=== PATIENT | male | born 1960 | race Caucasian/White ===

== ENCOUNTER 2019-01-04 14:18 | Emergency (ER) | payer BC ==
[2019-01-04] MEDS ORDERED: Bacitracin Oint 1 GM U/D Packet TOP ONE (14:37)
[2019-01-04] MEDS ORDERED: Diphtheria,Pertussis(Acell),Tetanus Vaccine 0.5 ML SDV IM ONE (14:37)
--- NOTE | 2019-01-04 14:43 | EDM.PDOC ---
ED HPI GENERAL MEDICAL PROBLEM - General Chief Complaint: Laceration Stated Complaint: LACERATION ON LEFT INDEX FINGER Time Seen by Provider: 01/04/19 14:35 Source of Information: Reports: Patient History Limitations: Reports: No Limitations - History of Present Illness INITIAL COMMENTS - FREE TEXT/NARRATIVE: 58 yo male here after lacerating the dorsum of his L index finger over the PIP jt. His last tetanus was 5 yrs ago. Is [place]. Injury the result of slipping with a knife. 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) - Related Data Allergies Allergy/AdvReac Type Severity Reaction Status Date / Time No Known Allergies Allergy Verified 01/04/19 14:36 Home Meds: Home Meds Aspirin [[place] Aspirin] 1 tab PO DAILY 01/04/19 [History] Rosuvastatin Calcium 1 tab PO BEDTIME 01/04/19 [History] ED ROS GENERAL - Review of Systems Review Of Systems: See Below Constitutional: Reports: No Symptoms Musculoskeletal: Reports: No Symptoms Skin: Reports: Wound Neurological: Reports: No Symptoms ED EXAM, SKIN/RASH Exam: See Below Exam Limited By: No Limitations General Appearance: Alert, WD/WN, No Apparent Distress Extremities: Other (wound L index finger, normal extension strength.). No: Non- Tender, Pedal Edema, Joint Swelling, Increased Warmth Neurological: Alert, Oriented, CN II-XII Intact, Normal Cognition, No Motor/ Sensory Deficits Psychiatric: Normal Affect, Normal Mood Skin: Warm, Dry, Normal Color, No Rash, Wound/Incision (linear laceration of L index finger dorsally over the PIP jt. ) Location, Skin: Upper Extremity, Left Characteristics: Linear, Other (no active bleeding) Associated features: Tenderness. No: Warmth, Swelling, Induration, Lymphangitis , Inflammation ED SKIN PROCEDURES - Laceration/Wound Repair Left Dorsal Digit - 2nd (Index) Appearance: Subcutaneous, Linear, Clean Distal NVT: Neuro & Vascular Intact, No Tendon Injury Anesthetic Type: Local Local Anesthesia - Lidocaine (Xylocaine): 1% Plain Local Anesthetic Volume: 2cc Skin Prep: Saline Saline Irrigation (cc's): 20 Closed with: Sutures Lac/Wound length In cm: 1.7 Suture Size: 5-0 # of Sutures: 3 Suture Type: Nylon, Interrupted, Simple Drain Placement: No Sterile Dressing Applied: Nurse Tetanus Status Addressed: Yes Complications: No Course - Vital Signs Last Recorded V/S: Last Vital Signs Temp 37.4 C 01/04/19 14:35 Pulse 97 01/04/19 14:35 Resp 13 01/04/19 14:35 BP 139/73 01/04/19 14:35 Pulse Ox 98 01/04/19 14:35 - Orders/Labs/Meds Orders: Active Orders 24 hr Category Date Time Status Vaccines to be Administered [RC] PER UNIT ROUTINE Care 01/04/19 14:37 Ordered Meds: Medications Discontinued Medications Generic Name Dose Route Start Last Admin Trade Name Freq PRN Reason Stop Dose Admin Bacitracin 1 dose 01/04/19 14:37 Bacitracin Oint 1 Gm TOP 01/04/19 14:38 ONETIME ONE Diphtheria/Tetanus/Acell Pertussis 0.5 ml 01/04/19 14:37 Adacel IM 01/04/19 14:38 .ONCE ONE Lidocaine HCl 5 ml 01/04/19 14:37 Xylocaine-Mpf 1% INJECT 01/04/19 14:38 ONETIME ONE Departure - Departure Time of Disposition: 14:55 Disposition: Home, Self-Care 01 Condition: Good Clinical Impression: Finger laceration Qualifiers: Encounter type: initial encounter Finger: index finger Damage to nail status: without damage Foreign body presence: without foreign body Laterality: left Qualified Code(s): S61.211A - Laceration without foreign body of left index finger without damage to nail, initial encounter - Discharge Information *PRESCRIPTION DRUG MONITORING PROGRAM REVIEWED*: No *COPY OF PRESCRIPTION DRUG MONITORING REPORT IN PATIENT TRAVIS: No Instructions: Sutured Wound Care, [id number] Referrals: PCP,None [Primary Care Provider] - Additional Instructions: Clean wound twice daily with soap and water. Dry. Apply antibiotic ointment and a new dressing. Keep wound clean for 3 days. Recheck for signs of infection. Stitches out in about 10 days. Take acetaminophen as needed for pain relief. - My Orders Last 24 Hours: My Active Orders 01/04/19 14:37 Vaccines to be Administered [RC] PER UNIT ROUTINE - Assessment/Plan Last 24 Hours: My Active Orders 01/04/19 14:37 Vaccines to be Administered [RC] PER UNIT ROUTINE
== END 2019-01-04 15:11 | disposition home or self-care (01) ==
LOC: JP.ED 14:18
DX: S61.211A Laceration without foreign body of left index finger without damage to nail, initial encounter (principal); Z23 Encounter for immunization; Z79.82 Long term (current) use of aspirin; W01.0XXA Fall on same level from slipping, tripping and stumbling without subsequent striking against object, initial encounter; W26.0XXA Contact with knife, initial encounter
CPT/HCPCS: 12001; 90471; 90715; 99282; J2001

== ENCOUNTER 2019-09-21 10:21 | Emergency (ER) | payer BC, OTHER ==
--- NOTE | 2019-09-21 11:15 | EDM.PDOC ---
ED HPI GENERAL MEDICAL PROBLEM - General Chief Complaint: Lower Extremity Injury/Pain Stated Complaint: PULLED MUSCLE IN LEFT THIGH BACK Time Seen by Provider: 09/21/19 10:37 Source of Information: Reports: Patient History Limitations: Reports: No Limitations - History of Present Illness INITIAL COMMENTS - FREE TEXT/NARRATIVE: 58-year-old male with no significant health problems other than coronary artery disease. He takes an aspirin a day. He was attempting to slalom ski yesterday and injured his right leg. He had immediate pain. Today he has pain and swelling. He has increased pain with weightbearing, extending and flexing the knee as well extending the hip. He denies any numbness or weakness. He denies any discoloration of the right foot. He is using Tylenol and ibuprofen and it helps. Left Posterior Leg Pain Score (Numeric/FACES): 6 - Related Data Allergies Allergy/AdvReac Type Severity Reaction Status Date / Time No Known Allergies Allergy Verified 01/04/19 14:36 Home Meds: Home Meds Aspirin [[place] Aspirin] 1 tab PO DAILY 01/04/19 [History] Rosuvastatin Calcium 1 tab PO BEDTIME 01/04/19 [History] Past Medical History HEENT History: Reports: Impaired Vision Cardiovascular History: Reports: CAD, High Cholesterol, [place] - Past Surgical History Head Surgeries/Procedures: Reports: None HEENT Surgical History: Reports: None Cardiovascular Surgical History: Reports: Carotid Stents Social & Family History - Tobacco Use Smoking Status *Q: Never Smoker - Caffeine Use Caffeine Use: Reports: Coffee, Soda - Recreational Drug Use Recreational Drug Use: No Review of Systems - Review of Systems Review Of Systems: See Below Constitutional: Reports: No Symptoms Musculoskeletal: Reports: Other (Right leg pain) Neurological: Reports: Other (No numbness or weakness of the right foot.) ED EXAM, GENERAL - Physical Exam Exam: See Below Exam Limited By: No Limitations General Appearance: Alert, WD/WN, Mild Distress Cardiovascular: Other (Good dorsal pedal pulses. Normal sensation of the right foot.) Extremities: Other (He has pain and swelling posterior distal thigh. He is unable to fully flex or extend the right knee. He has some tenderness of the proximal posterior calf however he has good motion of the foot with pression of the calf. Has good dorsiflexion of the right foot as well as extensor pollicis longus. Patient is normal.) Course - Vital Signs Text/Narrative:: This patient has a tear of the hamstrings on the right leg. He will elevate and use ice. An Yohannes wrap was applied to the distal thigh. He can take ibuprofen or Tylenol as needed for pain. He will follow-up with an orthopedist in [place] where he resides for the next few days. He will return here as needed. He will watch for signs of compression syndrome including numbness, pain or weakness to the right leg. Last Recorded V/S: Last Vital Signs Temp 36.8 C 09/21/19 10:39 Pulse 92 09/21/19 10:39 Resp 13 09/21/19 10:39 BP 116/80 09/21/19 10:39 Pulse Ox 96 09/21/19 10:39 Departure - Departure Time of Disposition: 11:12 Disposition: DC/Tfer to Hospice - Home 50 Condition: Good Clinical Impression: Hamstring injury, Hamstring sprain - Discharge Information *PRESCRIPTION DRUG MONITORING PROGRAM REVIEWED*: No *COPY OF PRESCRIPTION DRUG MONITORING REPORT IN PATIENT TRAVIS: No Referrals: PCP,None [Primary Care Provider] - Forms: ED Department Discharge Additional Instructions: Keep your right leg elevated and use ice periodically to reduce pain and swelling. See an orthopedist in 2 or 3 days for reassessment. Use Tylenol or ibuprofen as needed for pain. Return to the ER as needed. Sepsis Event Note (ED) - Evaluation Sepsis Screening Result: No Definite Risk - Focused Exam Vital Signs: Vital Signs Temp Pulse Resp BP Pulse Ox 09/21/19 10:39 36.8 C 92 13 116/80 96 09/21/19 10:33 36.8 C 92 13 116/80 96
== END 2019-09-21 11:27 | disposition home or self-care (01) ==
LOC: JP.ED 10:21
DX: S76.301A Unspecified injury of muscle, fascia and tendon of the posterior muscle group at thigh level, right thigh, initial encounter (principal); S76.311A Strain of muscle, fascia and tendon of the posterior muscle group at thigh level, right thigh, initial encounter; I25.10 Atherosclerotic heart disease of native coronary artery without angina pectoris; E78.00 Pure hypercholesterolemia, unspecified; I25.2 Old myocardial infarction; Z79.82 Long term (current) use of aspirin; Z79.899 Other long term (current) drug therapy; V00.328A Other snow-ski accident, initial encounter; Y93.23 Activity, snow (alpine) (downhill) skiing, snowboarding, sledding, tobogganing and snow tubing
CPT/HCPCS: 99284

== ENCOUNTER 2020-02-12 11:35 | Emergency (ER) | payer OTHER ==
[2020-02-12] MEDS ORDERED: Lidocaine 1% with EPINEPHrine 1:100,000 50 ML MDV SUBCUT STA (12:01)
--- NOTE | 2020-02-12 12:28 | EDM.PDOC ---
ED HPI GENERAL MEDICAL PROBLEM - General Chief Complaint: Laceration Stated Complaint: CUT LH THUMB Time Seen by Provider: 02/12/20 11:58 Source of Information: Reports: Patient, RN Notes Reviewed History Limitations: Reports: No Limitations - History of Present Illness INITIAL COMMENTS - FREE TEXT/NARRATIVE: 59-year-old gentleman presents emergency department today with a laceration to his left arm he injured himself while sharpening his knife, he has no functional complaints - Related Data Allergies Allergy/AdvReac Type Severity Reaction Status Date / Time No Known Allergies Allergy Verified 02/12/20 11:50 Home Meds: Home Meds Aspirin [[place] Aspirin] 1 tab PO DAILY 01/04/19 [History] Rosuvastatin Calcium 1 tab PO BEDTIME 01/04/19 [History] Melatonin 3 mg PO BEDTIME 02/12/20 [History] Past Medical History HEENT History: Reports: Impaired Vision Cardiovascular History: Reports: CAD, High Cholesterol, [place] - Past Surgical History Head Surgeries/Procedures: Reports: None HEENT Surgical History: Reports: None Cardiovascular Surgical History: Reports: Carotid Stents Social & Family History - Tobacco Use Tobacco Use Status *Q: Never Tobacco User - Caffeine Use Caffeine Use: Reports: Coffee, Soda - Recreational Drug Use Recreational Drug Use: No ED ROS GENERAL - Review of Systems Review Of Systems: See Below Skin: Reports: Wound ED EXAM, SKIN/RASH Exam: See Below Text/Narrative:: Examination left hand there is a 1.5 cm laceration in between digits 1 and 2 on digit #1 side it is just above the proximal interphalangeal joint, full range of motion all digits radial pulses +2 Exam Limited By: No Limitations General Appearance: Alert, WD/WN, No Apparent Distress ED SKIN PROCEDURES - Laceration/Wound Repair Left Digit - 1st (Thumb) Appearance: Subcutaneous, Linear Distal NVT: Neuro & Vascular Intact, No Tendon Injury Anesthetic Type: Local Local Anesthesia - Lidocaine (Xylocaine): 1% with EPI Local Anesthetic Volume: 2cc Skin Prep: Saline Saline Irrigation (cc's): 60 Exploration/Debridement/Repair: Wound Explored, In a Bloodless Field, Explored to Base Closed with: Sutures Lac/Wound length In cm: 1.5 Suture Size: 4-0 # of Sutures: 3 Suture Type: Prolene Sterile Dressing Applied: Nurse Tetanus Status Addressed: Yes (2 years ago) Complications: No Course - Vital Signs Last Recorded V/S: Last Vital Signs Temp 96.8 F L 02/12/20 11:49 Pulse 72 02/12/20 11:49 Resp 20 02/12/20 11:49 BP 149/75 H 02/12/20 11:49 Pulse Ox 96 02/12/20 11:49 - Orders/Labs/Meds Meds: Medications Discontinued Medications Generic Name Dose Route Start Last Admin Trade Name Fina PRN Reason Stop Dose Admin Lidocaine/Epinephrine 20 ml 02/12/20 12:01 02/12/20 12:06 Xylocaine 1% With Epinephrine 1:100,000 SUBCUT 02/12/20 12:02 20 ml NOW STA Administration Departure - Departure Time of Disposition: 12:27 Disposition: Home, Self-Care 01 Condition: Fair Clinical Impression: Laceration of left thumb Qualifiers: Encounter type: initial encounter Damage to nail status: without damage Foreign body presence: without foreign body Qualified Code(s): S61.012A - Laceration without foreign body of left thumb without damage to nail, initial encounter - Discharge Information Instructions: Laceration Care, Adult Referrals: PCP,None [Primary Care Provider] - Additional Instructions: Suture removal in 10 days, follow-up with primary care or return to the emergency department follow wound care instruction sheet please call to the emergency department worsening of symptoms Sepsis Event Note (ED) - Evaluation Sepsis Screening Result: No Definite Risk - Focused Exam Vital Signs: Vital Signs Temp Pulse Resp BP Pulse Ox 02/12/20 11:49 96.8 F L 72 20 149/75 H 96 - Assessment/Plan Plan: Assessment Acuity = acute Site and laterality = laceration 1.5 cm left thumb Etiology = secondary to trauma with a knife Manifestations = none Location of injury = Home Lab values = none Plan Suture removal in 10 days follow-up primary care return to emergency department follow wound care instruction sheet This note was dictated using [employer] voice recognition software please call with any questions on syntax or grammar.
== END 2020-02-12 12:48 | disposition home or self-care (01) ==
LOC: JP.ED 11:35
DX: S61.012A Laceration without foreign body of left thumb without damage to nail, initial encounter (principal); I25.10 Atherosclerotic heart disease of native coronary artery without angina pectoris; E78.00 Pure hypercholesterolemia, unspecified; I25.2 Old myocardial infarction; Z79.82 Long term (current) use of aspirin; Z79.899 Other long term (current) drug therapy; W26.0XXA Contact with knife, initial encounter
CPT/HCPCS: 12001; 99282-25